=== PATIENT | female | born 1965 | race African-American/Black ===

== ENCOUNTER 2017-01-30 19:05 | Emergency (ER) | payer OTHER ==
[2017-01-30 19:57] LABS: BASOPHIL 0.6 % (0-2); EOSINOPHIL 0.8 % (0-5); HCT 36.5 % (37.0-47.0); HGB 11.7 g/dl (12.5-16.0); LYMPHOCYTE 17.6 % (15-48); MCH 27.1 pg (25.0-31.0); MCHC 32.1 g/dL (32.0-36.0); MCV 84.5 fL (78.0-100.0); MONOCYTE 5.1 % (0-12); MPV 10.2 fL (6.0-9.5); NEUTROPHIL 75.9 % (41-80); PLT 284 K/uL (150-400); RBC 4.32 M/uL (4.20-5.40); RDW 13.4 % (11.5-14.0); WBC 7.1 K/uL (4.0-10.5)
[2017-01-30 20:01] LABS: INR 1.06 (0.9-1.2); PROTHROMBIN TIME 13.4 SECONDS (11.7-14.0); PTT 25.9 SECONDS (23.2-31.4)
[2017-01-30 20:08] LABS: BILIRUBIN - TOTAL 0.7 mg/dL (0.1-1.0); CREATININE 1.3 mg/dL (0.5-1.0); GLOBULIN (CALCULATION) 3.2 g/dL (2.2-4.2); POTASSIUM 2.9 mmol/L (3.5-5.1); TOTAL PROTEIN 7.2 g/dL (6.4-8.3)
[2017-01-30 20:09] LABS: MYOGLOBIN 68 ng/mL (26-65); TROPONIN T < 0.010 ng/mL
== END 2017-01-30 23:26 | disposition home or self-care (01) ==
LOC: FER 19:05
PROVIDERS: Emergency Medicine Emergency Medical Services
DX: E87.6 Hypokalemia (principal); E86.0 Dehydration; R20.9 Unspecified disturbances of skin sensation; R42 Dizziness and giddiness; I10 Essential (primary) hypertension; Z90.49 Acquired absence of other specified parts of digestive tract; Z90.710 Acquired absence of both cervix and uterus
CPT/HCPCS: 36415; 70450; 71010; 80053; 80061; 82550; 82553; 83874; 84484; 85025; 85610; 85730; 93005; J2405

== ENCOUNTER 2020-11-10 10:22 | Emergency (ER) | payer OTHER ==
[~2020-11-10 10:22] MED LIST: CIPRO500 MG PO; NAPROXEN500 MG PO
[2020-11-10] MEDS ORDERED: NORCO 5-325 TA1 EACH PO (11:40)
[2020-11-10] MEDS ORDERED: ETODOLAC500 MG PO (11:40)
== END 2020-11-10 11:50 | disposition home or self-care (01) ==
LOC: FER 10:22
DX: M23.92 Unspecified internal derangement of left knee (principal); I10 Essential (primary) hypertension
CPT/HCPCS: 73564